=== PATIENT | female | born 1985 | race Caucasian/White ===

== ENCOUNTER 2017-12-06 15:18 | Emergency (ER) | payer SELFPAY ==
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
[2017-12-06 15:30] VITALS: BP 128/78
[2017-12-06] MEDS ORDERED: METRONIDAZOLE 500 MG TABLET PO ONE (18:00)
[2017-12-06] MEDS ORDERED: cefTRIAXone 250 MG VIAL IM ONE (18:00)
[2017-12-06] MEDS ORDERED: AZITHROMYCIN 250 MG TAB PO ONE (18:00)
[2017-12-06] MEDS ORDERED: LEVONORGESTREL 1.5 MG TAB PO ONE (18:00)
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
[2017-12-06] MEDS ORDERED: LEVE100047 PO (18:52)
== END 2017-12-06 18:52 | disposition home or self-care (01) ==
LOC: EEVIPCON 15:20 → ER 15:20 → SANE 18:52
DX: T74.21XA Adult sexual abuse, confirmed, initial encounter (principal); R51 Headache; M25.512 Pain in left shoulder; S20.312A Abrasion of left front wall of thorax, initial encounter; S20.112A Abrasion of breast, left breast, initial encounter; S60.511A Abrasion of right hand, initial encounter; S70.312A Abrasion, left thigh, initial encounter; S70.311A Abrasion, right thigh, initial encounter; Y04.8XXA Assault by other bodily force, initial encounter
CPT/HCPCS: 70450; 73030; 81025; 99283; A9270; J0696; Q0144